=== PATIENT | female | born 2000 | race Caucasian/White ===

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

== ENCOUNTER 2022-05-19 14:12 | Emergency (ER) | payer OTHER, SELFPAY ==
[2022-05-19 14:13] VITALS: BP 141/78; PULSE 104; RESP 18; TEMP 36.9; O2SAT 99; BMI 25.7
--- NOTE | 2022-05-19 14:16 | ED_ITS ---
HPI - Allergic Reaction General Chief complaint: Allergic Reaction Stated complaint: Allergic Rx Time Seen by Provider: 05/19/22 16:45 Source: patient Mode of arrival: ambulatory Limitations: no limitations History of Present Illness HPI narrative: 22yoF c PMHx of anaphylaxis to peanuts who is presenting to the ER after giving herself the EpiPen to the right thigh approximately 15 minutes prior to arrival for possible allergic reaction. She reports that she did not eat or drink anything different and she did not eat anything with peanuts. Although she started feeling flushing with eye drainage and nasal congestion and this is usually how her allergic reactions present therefore she give herself the EpiPen. She reports she is feeling much better no symptoms at this time. She also took Claritin. MD complaint: allergic reaction Onset (ago): minute(s) (Prior to arrival) Exposure: unknown Symptoms: other (See above) Severity: mild Treatment prior to arrival: other (Claritin an EpiPen) Previous Allergic Reaction History: prior ED visit(s), anaphylaxis and angioedema Related Data Previous Rx's Medication Instructions Recorded diphenhydramine HCl 25 mg capsule 50 mg PO TID PRN allergic reaction 05/19/22 (Allergy (diphenhydramine)) #20 caps epinephrine 0.3 mg/0.3 mL 0.3 mg (0.3 mL) IM Q20M PRN 05/19/22 injection, auto-injector (EpiPen) anaphylaxis #2 ea prednisone 20 mg tablet 40 mg PO DAILY Allergic reaction 5 05/19/22 days #10 tabs Allergies Allergy/AdvReac Type Severity Reaction Status Date / Time No Known Allergies Allergy Verified 05/19/22 16:45 Review of Systems Review of Systems: Constitutional : No Fever, No Chills , no body aches, no recent illness Head/Face: No facial swelling, No facial redness ENT/Mouth : No oral/throat swelling, No Hoarseness, No Swallowing Difficulty Eyes: No Eye Pain, No Swelling, No Redness Cardiovascular : No Chest Pain, No SOB, No palpitations Respiratory : No Cough, No Sputum, No Wheezing, No Smoke Exposure, No Dyspnea Gastrointestinal : No Nausea, No Vomiting, No Diarrhea, No abdominal Pain Genitourinary : No Dysuria, No Urinary Frequency, No Hematuria Musculoskeletal : No joint pain, No Myalgias, No Joint Swelling Skin : No Skin Lesions, No rash Neuro : No Weakness, No Numbness, No Headache, No dizziness, No tingling Psych : No Anxiety/Panic, No Depression Heme/Lymph: No Bruising, No Lymphadenopathy Endocrine : No Polyuria, No Polydipsia Denies changes in lotions or detergents. Denies new medications or any changes in medications. Denies drainage from rash. Denies any recent sick contacts or recent travel. Yes all other systems are reviewed and are negative [facility] Past Medical History Attestation statement: The following information was validated with the patient. Source: old records reviewed and nursing notes reviewed Social History Social History Advance Directives: No Advance Directives Information Provided: No Physical Exam ED Vital Signs: Vital Signs - 24 hr 05/19/22 14:13 Temperature 98.5 F Pulse Rate 104 H Respiratory Rate 18 Blood Pressure 141/78 H Pulse Oximetry 99 Oxygen Delivery Method Room Air BMI result Body Mass Index 25.7 vital signs have been reviewed as normal and appeared to be correct. Blood pressure normal. Heart rate normal. Respiration rate normal. Temperature normal. Oxygen saturation normal. Appearance: Alert. Oriented X3. No acute distress. Head: Normal external exam. Normocephalic. Atraumatic. No Duenas signs noted. No raccoon eyes noted Eyes: PERRLA. EOMI. Conjunctiva and sclera normal. Eyelids normal. ENT: EAC normal. TM's Normal. No septal hematoma noted. No hemotympanum noted. Pharynx normal. Uvula midline. Moist mucous membranes. No lesions/ulcerations or masses noted on the tongue. Normal voice. No trismus noted. No drooling noted. No muffled voice noted. Neck: Normal inspection. Neck supple. FROM. No adenopathy. Thyroid Normal. No tracheal deviation noted. No crepitus is noted. No meningeal signs. No neck mass noted. No signs of trauma noted. CVS: Normal heart rate and rhythm. Heart sound normal. Pulses normal throughout. No murmurs/rales/gallops. Respiratory: No respiratory distress. Painless inspiration. Breath sounds normal. No wheezes/rales/rhonchi noted. Chest nontender. No crepitus is noted. No signs of trauma noted. No accessory muscle usage noted or decreased air movement noted. No signs of trauma. Abdomen: Soft and nontender. Bowel sounds normal in all 4 quadrants. No d istention noted. No organomegaly noted. No visible injury noted. Back: No CVA tenderness. Full range of motion noted. Nontender. No signs of trauma. Patient neuro intact bilaterally and distally on all 4 extremities. Patient's reflexes intact bilaterally and distally on all 4 extremities. No rashes/lesion/induration/fluctuance or signs of infection noted. Skin: Skin warm and dry. Normal skin color. Normal skin turgor. No rashes/lesions/lacerations noted. Extremities: No lower extremity edema. No calf tenderness is noted. Extremities exhibit normal range of motion and nontender. Neuro: Oriented X 3. No motor deficit. No sensory deficit. Reflexes normal. Normal steady gait. No focal neuro deficits noted. CN's II-XII intact bilaterally? Vascular: + radial pulses/+ 2 distal pedal pulses/+2 dorsalis pedis b/l. Normal cap refill. No cyanosis noted to upper extremity nails and lower extremity toes nails. Course Course Course Narrative: 14:17pm - 22yoF c PMHx of anaphylaxis to peanuts who is presenting to the ER after giving herself the EpiPen to the right thigh approximately 15 minutes prior to arrival for possible allergic reaction. She reports that she did not eat or drink anything different and she did not eat anything with peanuts. Although she started feeling flushing with eye drainage and nasal congestion and this is usually how her allergic reactions present therefore she give herself the EpiPen. She reports she is feeling much better no symptoms at this time. She also took Claritin. IMP/Plan: Allergic rxn. Not anaphylaxis. Not sepsis/ infectious etiology. Patient well appearing in no acute distress, breathing easily without throat symptoms. Speaking full sentences, and handling secretions without difficulty. There is no obvious threat to airway. Lungs are CTA in all carver. No signs of angioedema, stridor, airway compromise, anaphylaxis or anaphylactic shock. Not c/w SSSS/ TEN/ Eryth multiforme/ Goodman Johnsons. Given HPI and PE - Will watch and observe. If patient continues to be symptom free - can be d/c with return precautions. Patient will be sent back to the waiting room for further evaluation treatment to Emergency minor care. Reevaluation(s) Reevaluation #1: Patient remained symptoms free. She wants to go home. Therefore will DC home with Benadryl/prednisone and a new EpiPen instructions return if any new or worsening symptoms follow up with primary care provider. Patient understands agrees with this plan. Time: 16:49 Discharge Plan Discharge Clinical Impression: Allergic reaction Patient Disposition: Home, Self-Care Prescriptions: New diphenhydramine HCl [Allergy (diphenhydramine)] 25 mg capsule 50 mg PO TID PRN (Reason: allergic reaction) Qty: 20 0RF prednisone 20 mg tablet 40 mg PO DAILY 5 Days Qty: 10 0RF epinephrine [EpiPen] 0.3 mg/0.3 mL auto-injector 0.3 mg IM Q20M PRN (Reason: anaphylaxis) Qty: 2 0RF Rx Instructions: do not exceed 3 doses per episode Referrals: Physician,Unknown J [Primary Care Provider] - (YOUR PCP IN 2 DAYS NEEDED)
== END 2022-05-19 16:55 | disposition home or self-care (01) ==
PROVIDERS: Emergency Provider Emergency Medicine
DX: L23.9 Allergic contact dermatitis, unspecified cause (principal)
CPT/HCPCS: 99281; 99283